=== PATIENT | female | born 1980 | race Caucasian/White ===

== ENCOUNTER → 2019-12-23 14:24 | Outpatient (BNVA) | payer MEDICAID, SELFPAY | PROVIDERS: Family Provider Electrodiagnostic Medicine; Visit Provider Nurse Practitioner Family | DX: Z20.828 Contact with and (suspected) exposure to other viral communicable diseases (principal) | CPT/HCPCS: 87635 ==

== ENCOUNTER 2020-01-23 19:50 | Emergency (ER) | payer SELFPAY ==
[2020-01-23 20:12] VITALS: BP 126/87; PULSE 78; RESP 18; TEMP 36.2; O2SAT 99; BMI 27.4
--- NOTE | 2020-01-23 21:11 | CTR_ITS ---
PROCEDURE INFORMATION: Exam: CT Maxillofacial With Contrast Exam date and time: 01/23/2020 9:23 PM Age: 39 years old Clinical indication: Patient HX: C/O L jaw pain and swelling w difficulty swallowing; Additional info: Lip/mouth swelling - ? anahi's angina TECHNIQUE: Imaging protocol: Computed tomography images of the face with intravenous contrast. Radiation optimization: All CT scans at this facility use at least one of these dose optimization techniques: automated exposure control; mA and/or kV adjustment per patient size (includes targeted exams where dose is matched to clinical indication); or iterative reconstruction. Contrast material: OMNI 300; Contrast volume: 95 ml; Contrast route: INTRAVENOUS (IV); COMPARISON: No relevant prior studies available. RADIATION DOSE METRICS: Total DLP (mGy-cm): 795.76 FINDINGS: Orbital cavity: Orbits are normal. Globes are unremarkable. Bones/joints: No acute fracture. Paranasal sinuses: Clear. Soft tissues: Mild thickening of the left platysma muscle. No subcutaneous fat stranding. Lymph nodes: Prominent left submandibular lymph nodes measuring up to 0.7 cm short axis. Submandibular/Parotid glands: There is inhomogeneity within the lateral aspect of the left submandibular gland with adjacent fluid in the left submandibular compartment and extending inferior to the mandible. No peripheral enhancement surrounding this fluid. CT/CT facial bones w con [id number] IMPRESSION: 1. Inhomogeneity and edema within the lateral left submandibular gland. This could be infectious or inflammatory. 2. Fluid and fat stranding in the left submandibular compartment extending to the submandibular gland. This could be infectious but there is no peripheral enhancement to suggest an organized abscess. 3. Prominent left submandibular lymph nodes are most likely reactive. Radiation Dose CTDIVOL = (mGy): DLP = 795.76 (mGy-cm)
--- NOTE | 2020-01-23 21:18 | ED_ITS ---
HPI - Dental/Oral General: Chief complaint: Dental/Oral Stated complaint: oral pain Time Seen by Provider: 01/23/20 20:52 History of Present Illness: HPI Narrative: 39-year-old female patient presents to the emergency department with dental pain. She reports pain onset x2 days. Reports drooling in her sleep, she states difficulty swallowing. Has dental lg ointment on Saturday but is not able to take the pain. She reports swelling to the left side of the face and underneath the chin. MD Complaint: tooth pain Teeth map: 1. dental pain with decay - previous avulsion 2. dental pain with decay present Onset (ago): day(s) (2) Duration: constant Severity: severe Severity scale (1-10): 10 Relieving factors: nothing Exacerbating factors: chewing and swallowing Context: history of dental caries Associated symptoms: Reports ear or mastoid pain and odynophagia; Denies fever(s) Treatment prior to arrival: other (NSAIDS) Review of Systems General: Reports: 10 or more systems reviewed and unremarkable except in HPI and below Const: Denies: fever(s), chills or diaphoresis Eyes: Denies: blurry vision or eye redness ENMT: Reports: odynophagia, mouth pain, dental pain, halitosis and ear or mastoid pain; Denies: nasal discharge or nasal congestion Card: Denies: chest pain, palpitations or irregular heart rhythm Resp: Denies: dyspnea, productive cough, non-productive cough or wheezing GI: Denies: abdominal pain, nausea or vomiting : Denies: difficulty voiding or dysuria Musc: Denies: back pain Skin/Breast: Denies: rash or pruritus Neuro: Denies: headache(s), weakness in extremities or behavioral changes Psych: Denies: anxiety or depression Anmol/Lymph: Denies: easy bruising PFSH ED PFSH: Social History Smoking and tobacco status: never smoked Alcohol intake: never History of recent travel: No Current gender identity: Female Physical Exam Const: COMMON NORMALS: no acute distress, patient oriented x3, healthy appearing and alert GENERAL APPEARANCE: cooperative, comfortable and well hydrated HENMT: COMMON NORMALS: normocephalic, atraumatic, TM's normal bilaterally, Normal external nose present, Normal nasal mucous membranes and turbinates present and moist oral mucous membranes HEAD & SCALP: normal to inspection, normocephalic and atraumatic FACE & SINUS: face symmetric (edema to the left lateral submental/subtonsilar nodes), sinus tenderness maxillary (left), Facial tenderness on exam of face and sinuses on the left, TMJ findings Tender TMJ to palpation laterality: left and other (edema to the inferior chin - left ); no erythema and no edema NOSE: Normal external nose present and Normal nasal mucous membranes and turbinates present TYMPANIC MEMBRANE: TM's normal bilaterally MOUTH: TMJ findings TEETH & GINGIVA IMAGES: 1. dental avulsion with decay with tenderness 2. dental decay with tenderness Eye: COMMON NORMALS: Equal, round and reactive pupils present and EOMs intact bilaterally GENERAL EYE: appearance normal, both eyes and all related structures PUPIL: Yes Equal, round and reactive pupils present Neck/C-Spine: COMMON NORMALS: full ROM and no lymphadenopathy GENERAL: Yes normal visual inspection and Yes trachea midline CERVICAL SPINE: Yes cervical ROM normal Lymph: LYMPHATIC: no lymphadenopathy noted Chest: COMMONS NORMALS: normal inspection of the chest Resp: COMMON NORMALS: normal respiratory effort and clear to auscultation bilaterally AUSCULTATION: clear to auscultation bilaterally Cardio: COMMON NORMALS: regular rhythm, S1 normal heart sound present and S2 normal heart sound present RHYTHM: regular rhythm HEART SOUNDS: S1 normal heart sound present and S2 normal heart sound present GI: COMMON NORMALS: Soft to palpation and non-tender INSPECTION: Yes normal to inspection PALPATION: Yes Soft to palpation : COMMON NORMALS: Yes no CVA tenderness BLADDER/KIDNEY EXAM: Yes no CVA tenderness Back/Pelvis: COMMON NORMALS: no CVA tenderness and thoracic and lumbar spine normal to inspection Extremity: COMMON NORMALS: normal to inspection and capillary refill normal Neuro: COMMON NORMALS: patient oriented x3 and no focal motor deficits SENSORIUM/ORIENTATION: Yes alert Psych: COMMON NORMALS: mental status grossly normal, Normal thought process present and cooperative ACTIVITY/MOTOR BEHAVIOR: Yes appropriate eye contact THOUGHT PROCESS: Normal thought process present Skin: COMMON NORMALS: no rashes or lesions noted and turgor normal GENERAL SKIN EXAM: no rashes or lesions noted and turgor normal Course ED course: 39-year-old female patient presents to the emergency department with dental pain. She reports numerous dental caries, has appointment with her dentist on Saturday but cannot take the pain. CT scan with contrast facial bones due to my concern of Carina's angina secondary to swelling appreciated under the left chin. Submandibular gland enlargement noted, patient received IV antibiotics here in the ED along with dexamethasone and pain medication. She agrees to continue with follow-up with dentist as scheduled. Tolerated p.o. fluids, Zofran was administered secondary to nausea which resolved. Agrees to return emergency department if she develops worsening symptoms/difficulty breathing. Questions were answered, serology and radiology results discussed. Vital Signs: Vital signs: Vital Signs Temperature 97.2 F L 01/23/20 20:12 Pulse Rate 84 01/24/20 00:03 Respiratory Rate 22 H 01/24/20 00:03 Blood Pressure 115/81 01/24/20 00:03 Pulse Oximetry 99 01/24/20 00:03 MDM - Dental/Oral Lab Data: Labs: Lab Results 01/23/20 01/23/20 Range/Units 21:48 21:48 WBC 8.8 (4.0-10.0) 10^3/ uL RBC 4.57 (4.1-5.3) 10^6/u L Hgb 14.2 (11.5-15.3) g/dL Hct 42.5 (37.0-47.0) % MCV 93.0 (81-99) fL MCH 31.1 (28.0-34.0) pg MCHC 33.4 (30.0-36.0) g/dL RDW 11.9 L (12.1-15.1) % Plt Count 241 (130-400) 10^3/c mm MPV 9.8 (7.4-10.4) fL Neut % (Auto) 70.3 % Lymph % (Auto) 19.0 % [place] % (Auto) 9.4 % Eos % (Auto) 0.8 % Baso % (Auto) 0.3 % Neut # (Auto) 6.19 (1.8-7.7) 10^3/u L Lymph # (Auto) 1.7 (0.8-4.8) 10^3/u L [place] # (Auto) 0.8 (0.2-0.9) 10^3/u L Eos # (Auto) 0.1 (0.0-0.8) 10^3/u L Baso # (Auto) 0.0 (0.0-0.1) 10^3/u L Nucleated RBC % (a uto) 0 % Nucleated RBCs # 0.0 /100WBC Sodium 136 (136-145) mmol/L Potassium 4.1 (3.5-5.1) mmol/L Chloride 105 (98-107) mmol/L Carbon Dioxide 20 L (22-29) mmol/L Anion Gap 15.1 (5-19) BUN 12 (6-20) mg/dL Creatinine 0.4 L (0.5-0.9) mg/dL GFR Calculation 177.7 H (90-130) mL/min Glucose 99 (65-115) mg/dL Calculated Osmolal ity 282 L (285-295) mOsm/k g Calcium 9.0 (8.5-10.5) mg/dL Total Bilirubin 1.0 (0.15-1.2) mg/dL AST 39 H (0-32) U/L ALT 41 H (0-33) U/L Alkaline Phosphata se 69 (35-105) IU/L Total Protein 7.3 (6.6-8.7) g/dL Albumin 4.5 (3.5-5.2) g/dL Globulin 2.8 (1.3-4.6) g/dL Imaging Data^: Other CT: Radiologist's impression: [place] [address] CT Scan Report Signed Patient: Socorro Sanchez V Unit #: [id number] : [id number] Age/Sex: 39 / F ADM Date: 01/23/20 Loc: ER Room/Bed: Attending Dr: Ordering Provider/Ordering MD: Erin Osborne Date of Service: 01/23/20 Procedure(s): CT facial bones w con [id number] Accession Number(s): [id number] Report Number: [id number] PROCEDURE INFORMATION: Exam: CT Maxillofacial With Contrast Exam date and time: 01/23/2020 9:23 PM Age: 39 years old Clinical indication: Patient HX: C/O L jaw pain and swelling w difficulty swallowing; Additional info: Lip/mouth swelling - ? anahi's angina TECHNIQUE: Imaging protocol: Computed tomography images of the face with intravenous contrast. Radiation optimization: All CT scans at this facility use at least one of these dose optimization techniques: automated exposure control; mA and/or kV adjustment per patient size (includes targeted exams where dose is matched to clinical indication); or iterative reconstruction. Contrast material: OMNI 300; Contrast volume: 95 ml; Contrast route: INTRAVENOUS (IV); COMPARISON: No relevant prior studies available. RADIATION DOSE METRICS: Total DLP (mGy-cm): 795.76 FINDINGS: Orbital cavity: Orbits are normal. Globes are unremarkable. Bones/joints: No acute fracture. Paranasal sinuses: Clear. Soft tissues: Mild thickening of the left platysma muscle. No subcutaneous fat stranding. Lymph nodes: Prominent left submandibular lymph nodes measuring up to 0.7 cm short axis. Submandibular/Parotid glands: There is inhomogeneity within the lateral aspect of the left submandibular gland with adjacent fluid in the left submandibular compartment and extending inferior to the mandible. No peripheral enhancement surrounding this fluid. CT/CT facial bones w con [id number] IMPRESSION: 1. Inhomogeneity and edema within the lateral left submandibular gland. This could be infectious or inflammatory. 2. Fluid and fat stranding in the left submandibular compartment extending to the submandibular gland. This could be infectious but there is no peripheral enhancement to suggest an organized abscess. 3. Prominent left submandibular lymph nodes are most likely reactive. Radiation Dose CTDIVOL = (mGy): DLP = 795.76 (mGy-cm) Dictated By: Narayan Kaba Signed By: Narayan Kaba Signed Date/Time: 01/23/202237 DD/ 36 Discharge Plan Discharge Patient Disposition: Home Clinical Impression: Pain due to dental caries, Toothache Condition: Stable Prescriptions: New hydrocodone-acetaminophen 5-325 mg tablet 1 tab PO Q4H PRN (Reason: pain) Qty: 10 RF: 0 IBU 800 mg tablet 800 mg PO TID PRN (Reason: pain) Qty: 20 RF: 0 Lidocaine Viscous 2 % solution 10 ml topical Q3H PRN (Reason: pain) Qty: 100 RF: 0 No Action prednisone 20 mg tablet 40 mg PO DAILY 5 Days Qty: 10 RF: 0 Discharge Orders: Discharge Order (Routine); Ordered 01/23/20 Ordered By: Erin Osborne Discharge Diet: GI Soft Discharge Activity: Resume usual activity Patient Instructions: Dental Caries (ED), Toothache (ED) Activity Restrictions/Additional Instructions: Follow-up with your dentist as scheduled on Saturday Do not take other medication [id number] with exception of Tylenol as duplication of therapy can occur Return to the emergency department if you develop increased swelling of the face, difficulty breathing or inability to swallow Eat soft foods, drink lots of fluids Avoid chewing on the affected side May apply dental wax over the affected tooth to help with pain. Swish and spit with salt water several times daily to help with pain Discharge Date/Time: 01/24/20 00:11 Coding Level of Care Code ED Financial Accounting Manager for Lei Rogers Exam Comprehensive
[2020-01-23] MEDS: morphine 4 mg/mL SDV 1 mL IVP ×2 (21:49→22:16)
[2020-01-23] MEDS: clindamycin 300 MG/50 ML PREMIX 100 MG IV (21:49)
[2020-01-23] MEDS: ondansetron 2 mg/ML SDV 2 mL 4 MG IVP ×2 (21:49→23:56)
[2020-01-23 21:54] LABS: Basophils % 0.3 %; Eosinophils # 0.1 10^3/uL (0.0-0.8); Eosinophils % 0.8 %; Hematocrit 42.5 % (37.0-47.0); Hemoglobin 14.2 g/dL (11.5-15.3); Lymphocytes # 1.7 10^3/uL (0.8-4.8); Mean Corpuscular HGB Conc 33.4 g/dL (30.0-36.0); Mean Corpuscular Hemoglobin 31.1 pg (28.0-34.0); Mean Platelet Volume 9.8 fL (7.4-10.4); Monocytes # 0.8 10^3/uL (0.2-0.9); Monocytes % 9.4 %; Neutrophils # 6.19 10^3/uL (1.8-7.7); Neutrophils % 70.3 %; Nucleated Red Blood Cells % 0 %; Platelet Count 241 10^3/cmm (130-400); Red Blood Count 4.57 10^6/uL (4.1-5.3); Red Cell Distribution Width 11.9 % (12.1-15.1); White Blood Count 8.8 10^3/uL (4.0-10.0)
[2020-01-23 22:10] LABS: Alanine Aminotransferase 41 U/L (0-33); Albumin Level 4.5 g/dL (3.5-5.2); Alkaline Phosphatase 69 IU/L (35-105); Blood Urea Nitrogen 12 mg/dL (6-20); Carbon Dioxide 20 mmol/L (22-29); Chloride 105 mmol/L (98-107); Creatinine Clr Calc Pharmacy 184.3688; Globulin 2.8 g/dL (1.3-4.6); Glomerular Filtration Rate 177.7 mL/min (90-130); Glucose 99 mg/dL (65-115); Osmolality Calculated 282 mOsm/kg (285-295); Sodium 136 mmol/L (136-145); Total Protein 7.3 g/dL (6.6-8.7)
[2020-01-23] MEDS: iohexol 300 mg/mL 100 mL Btl IV (22:10)
[2020-01-23 22:16] VITALS: RESP 22; O2SAT 99
[2020-01-23 22:17] LABS: Anion Gap 15.1 (5-19); Aspartate Amino Transferase 39 U/L (0-32); Potassium 4.1 mmol/L (3.5-5.1)
[2020-01-23] MEDS: ketorolac 30 mg/mL INJ IVP (23:19)
[2020-01-23] MEDS: dexamethasone 10 mg/mL INJ IVP (23:50)
[2020-01-23] MEDS: HYDROcodone-acetaminophen 5-325 mg Tablet 1 TAB PO (23:56)
[2020-01-24 00:03] VITALS: BP 115/81; PULSE 84; RESP 22; O2SAT 99
== END 2020-01-24 00:11 | disposition home or self-care (01) ==
PROVIDERS: Emergency Provider Nurse Practitioner Family
DX: K02.9 Dental caries, unspecified (principal)
CPT/HCPCS: 12345; 70487; 80053; 85025; 96365; 96375; 96376; 99283; J1100; J1885; J2270; J2405; J3490; Q9967

== ENCOUNTER 2020-01-25 18:34 | Emergency (ER) | payer SELFPAY ==
[2020-01-25 18:44] VITALS: BP 141/83; PULSE 117; RESP 20; TEMP 37.3; O2SAT 98; BMI 27.4
--- NOTE | 2020-01-25 18:55 | ED_ITS ---
HPI - Dental/Oral General: Chief complaint: Dental/Oral Stated complaint: oral pain/swelling Time Seen by Provider: 01/25/20 18:47 History of Present Illness: HPI Narrative: Patient complains about dental abscess pain is not responding to clindamycin. Was seen here this weekend prescribed clindamycin given IV antibiotics IV morphine and was also given IV steroid contacted [facility] today was not able to get in yet. MD Complaint: tooth pain Teeth map: 1. Onset (ago): day(s) Duration: constant Severity: severe Severity scale (1-10): 8 Relieving factors: nothing Exacerbating factors: chewing Context: history of dental caries Associated symptoms: Reports no associated symptoms; Denies fever(s) Review of Systems Const: Denies: fever(s), chills or body aches Eyes: Denies: change in vision or blurry vision ENMT: Reports: other (Complains of pain to the jaw on the left side said it crosses over to the right side swellings about the same); Denies: throat pain or nasal congestion Card: Denies: chest pain or dyspnea on exertion Resp: Denies: dyspnea, productive cough or non-productive cough GI: Denies: abdominal pain, nausea or vomiting Musc: Denies: extremity pain Skin/Breast: Denies: rash Neuro: Denies: headache(s) Psych: Denies: anxiety or depression Anmol/Lymph: Denies: easy bruising PFSH ED PFSH: Social History Smoking and tobacco status: never smoked Alcohol intake: never History of recent travel: No Current gender identity: Female Physical Exam Const: COMMON NORMALS: no acute distress, average body habitus and patient oriented x3 HENMT: COMMON NORMALS: normocephalic HEAD & SCALP: normal to inspection and normocephalic FACE & SINUS: normal facial exam TEETH & GINGIVA IMAGES: 1. Dental caries THROAT: other (Does have slight submandibular abscess on her left side none on the right side is tender on the left side) Eye: COMMON NORMALS: conjunctivae normal GENERAL EYE: appearance normal, both eyes and all related structures CONJUNCTIVA: Yes conjunctivae normal Neck/C-Spine: COMMON NORMALS: no JVD Chest: COMMONS NORMALS: normal inspection of the chest Resp: COMMON NORMALS: normal respiratory effort and clear to auscultation bilaterally AUSCULTATION: clear to auscultation bilaterally Cardio: COMMON NORMALS: no JVD RATE: tachycardic GI: COMMON NORMALS: Normal to inspection, nondistended, normoactive bowel sounds present Extremity: COMMON NORMALS: normal to inspection and full ROM Neuro: COMMON NORMALS: patient oriented x3 Course Vital Signs: Vital signs: Vital Signs Temperature 99.1 F 01/25/20 18:44 Pulse Rate 117 H 01/25/20 18:44 Respiratory Rate 18 01/25/20 19:02 Blood Pressure 141/83 01/25/20 18:44 Pulse Oximetry 98 01/25/20 18:44 MDM - Dental/Oral MDM Narrative: Medical decision making narrative: Patient threw up Dilaudid tablet probably 5 minutes after taking it was not able to take any other medications as of yet. Said going get some IM Phenergan and subcu Dilaudid to help with her pain or vomiting Discharge Plan Discharge Patient Disposition: Home Clinical Impression: Dental abscess Condition: Stable Prescriptions: New Augmentin 875-125 mg tablet 1 tab PO BID Qty: 14 RF: 0 Zofran 4 mg tablet 4 mg PO Q8H PRN (Reason: nausea and vomiting) 5 Days Qty: 14 RF: 0 No Action prednisone 20 mg tablet 40 mg PO DAILY 5 Days Qty: 10 RF: 0 hydrocodone-acetaminophen 5-325 mg tablet 1 tab PO Q4H PRN (Reason: pain) Qty: 10 RF: 0 IBU 800 mg tablet 800 mg PO TID PRN (Reason: pain) Qty: 20 RF: 0 Lidocaine Viscous 2 % solution 10 ml topical Q3H PRN (Reason: pain) Qty: 100 RF: 0 Discharge Orders: Discharge Order (Routine); Ordered 01/25/20 Ordered By: Aron Patricio Discharge Diet: Usual diet Discharge Activity: Resume usual activity Activity Restrictions/Additional Instructions: Get into dentist as soon as possible continue both antibiotic and I have prescribed. Continue your pain medicine been prescribed. Use viscous lidocaine as much as possible as per directions. Discharge Date/Time: 01/25/20 20:15 Coding Level of Care Code ED Avionics Test Technician for Emmag Fwd Exam Comprehensive
[2020-01-25 19:02] VITALS: RESP 18
[2020-01-25] MEDS: ondansetron 4 MG Tablet 8 MG PO (19:02)
[2020-01-25] MEDS: predniSONE 20 mg Tablet 40 MG PO (19:03)
[2020-01-25] MEDS: amoxicillin-clav 875-125 mg Tablet 1 TAB PO (19:03)
[2020-01-25] MEDS: promethazine 25 mg/mL SDV 1 mL IM (19:26)
[2020-01-25] MEDS: HYDROmorphone 1 mg/mL INJ 1 mL 0.5 MG SUBCUT (19:27)
== END 2020-01-25 20:15 | disposition home or self-care (01) ==
PROVIDERS: Emergency Provider Nurse Practitioner Family
DX: K04.7 Periapical abscess without sinus (principal)
CPT/HCPCS: 12345; 96372; 99281; 99283; J1170; J2550; J7512; Q0162

== ENCOUNTER → 2020-12-20 11:24 | Outpatient (BNVA) | payer SELFPAY | PROVIDERS: Referring Provider Dermatology; Visit Provider Dermatology | DX: Z01.89 Encounter for other specified special examinations (principal) ==

== ENCOUNTER → 2021-05-16 11:49 | Outpatient (BNVA) | payer SELFPAY | PROVIDERS: Visit Provider Emergency Medicine | DX: R10.9 Unspecified abdominal pain (principal); R10.2 Pelvic and perineal pain | CPT/HCPCS: 81000; 81025; 86304 ==

== ENCOUNTER → 2021-10-20 11:43 | Outpatient (BNVA) | payer SELFPAY | PROVIDERS: Visit Provider Nurse Practitioner Women's Health | DX: Z01.419 Encounter for gynecological examination (general) (routine) without abnormal findings (principal); R10.2 Pelvic and perineal pain; Z80.41 Family history of malignant neoplasm of ovary | CPT/HCPCS: 87624 ==